=== PATIENT | male | born 1995 | race Caucasian/White ===

== ENCOUNTER 2018-04-10 02:22 | Emergency (ER) | payer OTHER ==
--- NOTE | 2018-04-10 02:29 | ER Report ---
History and Physical Time Seen By MD: 02:25 Hx. of Stated Complaint: patient is drunk; states that he is way too drunk and doesnt want to stay alone HPI/ROS CHIEF COMPLAINT: Vomiting, alcohol poisoning HISTORY OF PRESENT ILLNESS: 23-year-old male brought in by EMS from dormitory's after consuming copious quantities of alcohol is feeling ill and afraid to go to sleep. He might not wake up. He thinks she may be too intoxicated. Patient seems anxious. He denies other substance use. Shortly after arrival to the ER. Patient begins vomiting into an emesis bag. REVIEW OF SYSTEMS: Respiratory: No cough, no dyspnea. Cardiovascular: No chest pain, no palpitations. Gastrointestinal: As above Musculoskeletal: No back pain. Allergies: Coded Allergies: No Known Drug Allergies (Unverified , 04/10/18) Home Meds No Active Prescriptions or Reported Meds Hx Alcohol Use: Yes Constitutional Vital Sign - Last 24 Hours 04/10/18 04/10/18 04/10/18 04/10/18 02:22 02:24 02:30 02:52 Temp 98.4 Pulse ??? 97 ??? Resp 18 B/P (MAP) 125/74 (91) 125/74 117/70 (86) Pulse Ox 92 88 O2 Delivery Room Air 04/10/18 04/10/18 04/10/18 04/10/18 02:58 03:00 03:22 03:30 Pulse 86 B/P (MAP) 109/61 (77) 108/62 (77) Pulse Ox 98 O2 Flow Rate 2.0 04/10/18 04/10/18 04/10/18 04/10/18 04:00 04:30 05:00 05:27 Pulse 63 B/P (MAP) 111/70 (84) 117/75 (89) 114/62 (79) Pulse Ox 96 Physical Exam General Appearance: The patient is alert, has no immediate need for airway protection and no current signs of toxicity. Vital signs stable, afebrile, pulse ox normal, actively vomiting. Palpation of the head and neck reveal no tenderness or trauma HEENT: Pupils equal and round no injection. Oropharynx without redness or exudate, mucous. Membranes are moist., No dental trauma Respiratory: Chest is non tender, lungs are clear to auscultation. No chest wall tenderness Cardiac: regular rate and rhythm Gastrointestinal: Abdomen is soft and non tender, no masses, bowel sounds normal. Musculoskeletal: Neck: Neck is supple and non tender. Extremities have full range of motion and are non tender. Skin: No rashes or lesions. DIFFERENTIAL DIAGNOSIS: After history and physical exam differential diagnosis was considered for gastroenteritis, food poisoning, viral syndrome, Medical Decision Making Data Points Laboratory Hematology Test 04/10/18 02:42 Serum Alcohol 172 mg/dl Chemistry Test 04/10/18 02:42 Serum Alcohol 172 mg/dl Toxicology Test 04/10/18 02:42 Serum Alcohol 172 mg/dl ED Course/Re-evaluation Clinical Indication for ER IV: Hydration, IV Access ED Course Patient was admitted to an examination room. H&P was done. The dental diagnoses was considered. On conical examination, patient appears grossly intoxicated with alcohol poisoning. Peripheral IV is established. A blood alcohol was sent off. Patient's treated with Zofran 8 mg IV and 1 L of saline. A call returns at 172. Patient observed for several hours. He is clinically sober and able to ambulate. He is discharged home Decision to Disposition Date: Apr 10, 2018 Decision to Disposition Time: 02:59 Depart Departure Latest Vital Signs Vital Signs Date Time Temp Pulse Resp B/P (MAP) Pulse Ox O2 Delivery O2 Flow Rate FiO2 04/10/18 05:27 63 96 04/10/18 05:00 114/62 (79) 04/10/18 02:58 2.0 04/10/18 02:24 98.4 18 Room Air Impression: Primary Impression: Alcohol poisoning Condition: Improved Disposition: HOME OR SELF-CARE New Scripts No Active Prescriptions or Reported Meds Patient Instructions: Abuse of Alcohol (ED) Problem Qualifiers Primary Impression: Alcohol poisoning Encounter type: initial encounter Injury intent: accidental or unintentional Qualified Codes: T51.91XA - Toxic effect of unspecified alcohol, accidental (unintentional), initial encounter ELSA CROWLEY DO Apr 10, 2018 02:29
[2018-04-10] MEDS ORDERED: NS(*) 0.9% 1000 ML BAG 1,000 ML IV ONE (02:35)
[2018-04-10] MEDS ORDERED: ONDANSETRON 4 MG/2 ML VIAL IVP ONE (02:35)
[2018-04-10 05:00] VITALS: BP 114/62
== END 2018-04-10 07:24 | disposition home or self-care (01) ==
LOC: EDBD 02:25 → ER 02:25
DX: T51.91XA Toxic effect of unspecified alcohol, accidental (unintentional), initial encounter (principal); Y90.6 Blood alcohol level of 120-199 mg/100 ml
CPT/HCPCS: 80320; 96361; 96374; 99284; J2405; J7030

== ENCOUNTER → 2018-04-10 | Outpatient (CLI) | payer OTHER | LOC: AMB 01:57 | PROVIDERS: ATTEND Nurse Practitioner | DX: F10.120 Alcohol abuse with intoxication, uncomplicated (principal) | CPT/HCPCS: A0425; A0429 ==